=== PATIENT | male | born 1970 | race Caucasian/White ===

== ENCOUNTER 2016-08-15 22:56 | Emergency (ER) | payer MEDICAID ==
[2016-08-16] MEDS ORDERED: Ibuprofen 400 MG TAB ONE (02:09)
[2016-08-16] MEDS ORDERED: PREDNISONE 10 MG TAB ONE (02:09)
== END 2016-08-16 02:37 | disposition home or self-care (01) ==
LOC: ER 22:56
DX: M10.072 Idiopathic gout, left ankle and foot (principal)